=== PATIENT | female | born 1995 | race Two or more races ===

== ENCOUNTER 2019-02-03 15:50 | Inpatient (IN) | payer MEDICAID ==
[~2019-02-03] VITALS: Ht 162.6 cm; Wt 59.0 kg
[2019-02-03] MEDS ORDERED: DEXT 5%/LR + PITOCIN 20UNITS/L 1,000 ML IV SCH (17:53)
[2019-02-03] MEDS ORDERED: CARBOPROST TROMETHAMINE 250 MCG/ML AMPUL IM PRN (18:00)
[2019-02-03] MEDS ORDERED: PENICILLIN G POTASSIUM 5 MMU in DEXT 5% WATER 100 ML IV SCH (18:00)
[2019-02-03] MEDS ORDERED: METHYLERGONOVINE MALEATE 0.2 MG/ML IM PRN (18:00)
[2019-02-03] MEDS ORDERED: LIDOCAINE HCL 1% 20ML VIAL (Pyxis) INJ INFIL SCH (18:00)
[2019-02-03] MEDS ORDERED: NALOXONE HCL 0.4 MG/ML 1ML VIAL IM PRN (18:00)
[2019-02-03] MEDS: LACTATED RINGERS 1,000 ML IV SCH (18:13)
[2019-02-03 18:24] LABS: CLARITY URINE CLEAR (CLEAR); COLOR URINE YELLOW (YELLOW); KETONES URINE NEGATIVE (NEGATIVE); LEUKOCYTE ESTERASE URINE TRACE (NEGATIVE); NITRITE URINE NEGATIVE (NEGATIVE); OCCULT BLOOD URINE NEGATIVE (NEGATIVE); PROTEIN URINE NEGATIVE (NEGATIVE); SPECIFIC GRAVITY URINE 1.023 (1.005-1.030); UROBILINOGEN URINE 0.2 E.U./dL (0.2-1.0)
[2019-02-03 18:24] LABS: BASOPHILS % 0.3 % (0.0-2.0); EOSINOPHILS % 0.7 % (0.0-5.0); HEMATOCRIT. 30.8 % (36.0-48.0); HEMOGLOBIN. 10.2 g/dL (12.0-16.0); LYMPHOCYTES % 17.5 % (20.0-50.0); MEAN CORPUSCULAR VOLUME 81.6 fL (81.0-99.0); MEAN PLATELET VOLUME 11.5 fl (7.4-10.4); MONOCYTES % 8.3 % (2.0-8.0); NEUTROPHILS % 73.2 % (40.0-76.0); PLATELET 243 x1000/uL (130-400); RED BLOOD CELL COUNT 3.77 mill/uL (4.2-5.4); RED CELL DISTRIBUTION WIDTH 15.1 % (11.6-14.6)
[2019-02-03 18:32] LABS: INR 0.9; PARTIAL THROMBOPLASTIN TIME 26.6 sec (23.4-31.0); PROTHROMBIN TIME 9.3 sec (9.6-11.0)
[2019-02-03 18:44] LABS: *AMPHETAMINES SCREEN URINE NEGATIVE (NEGATIVE); *BARBITURATES SCREEN URINE NEGATIVE (NEGATIVE); *BENZODIAZEPINES SCREEN URINE NEGATIVE (NEGATIVE); *COCAINE SCREEN URINE NEGATIVE (NEGATIVE); METHADONE URINE SCREEN NEGATIVE (NEGATIVE)
[2019-02-03 18:45] LABS: CANNABINOID URINE SCREEN NEGATIVE (NEGATIVE); OPIATES URINE SCREEN NEGATIVE (NEGATIVE); PHENCYCLIDINE URINE SCREEN NEGATIVE (NEGATIVE)
[2019-02-03 19:01] LABS: HEPATITIS B SURFACE ANTIGEN NEGATIVE
[2019-02-03] MEDS: PENICILLIN G POTASSIUM 2.5 MMU in DEXTROSE 5% WATER 50 ML IV SCH (22:26)
[2019-02-03] MEDS: BUTORPHANOL TARTRATE 2 MG/ML VIAL IV PRN (23:10)
[2019-02-04] MEDS: LACTATED RINGERS 1,000 ML IV SCH ×2 (00:12→07:00)
[2019-02-04] MEDS: BUTORPHANOL TARTRATE 2 MG/ML VIAL IV PRN (02:09)
[2019-02-04] MEDS: PENICILLIN G POTASSIUM 2.5 MMU in DEXTROSE 5% WATER 50 ML IV SCH ×3 (02:41→10:29)
[2019-02-04] MEDS ORDERED: ROPIVACAINE HCL/PF EPIDURAL 200 ML EPI SCH (05:30)
[2019-02-04] MEDS: SIMETHICONE 80MG TABLET CHEW PO SCH ×2 (08:41→21:00)
[2019-02-04] MEDS: ACETAMINOPHEN 325MG TABLET PO PRN (11:08)
[2019-02-04] MEDS ORDERED: FENTANYL CITRATE/PF 50MCG/ML 2ML VIAL ONE (13:31)
[2019-02-04] MEDS ORDERED: CEFAZOLIN SODIUM 1000MG/VIAL ONE (13:49)
[2019-02-04] MEDS ORDERED: MORPHINE SULFATE/PF 1MG/ML 10ML AMP ONE (13:49)
[2019-02-04] MEDS ORDERED: SODIUM CHLORIDE 0.9% 10ML VIAL ONE (13:55)
[2019-02-04] MEDS ORDERED: OXYTOCIN 10 UNITS/ML 1ML ONE (14:04)
[2019-02-04] MEDS ORDERED: KETOROLAC 60MG/2ML VIAL IM ONE (14:19)
[2019-02-04] MEDS ORDERED: ONDANSETRON HCL 4MG/2ML INJ ONE (14:19)
[2019-02-04 14:39] LABS: BG BASE EXCESS -5.3 mmol/L (-2.0-2.0); BG CARBOXYHEMOGLOBIN 1.2 % (0.5-1.5); BG DEOXYHEMOGLOBIN 40.9 % (0.0-5.0); BG FRACTION INSPIRED OXYGEN 21; BG HCO3 ACT 19.5 mmol/L (22.0-26.0); BG METHEMOGLOBIN 1.1 % (0.0-1.5); BG OXYGEN SATURATION 58.1 % (92.0-98.5); BG OXYHEMOGLOBIN 56.8 % (94.0-97.0); BG PCO2 35.8 mmHg (35.0-45.0); BG PH 7.353 (7.350-7.450); BG PO2 < 30.3 mmHg (75.0-100.0); BG SAMPLE SITE CORD; BG TOTAL HEMOGLOBIN 15.2 g/dL (12.0-18.0); BG VENT MODE ROOM AIR
[2019-02-04] MEDS ORDERED: DEXT 5%/LR + PITOCIN 20UNITS/L 1,000 ML IV SCH (14:46)
[2019-02-04] MEDS ORDERED: TETANUS, DIPHTHERIA, PERTUSSIS VAC/PF 0.5ML (>7YR OLD) IM ONE (15:00)
[2019-02-04] MEDS ORDERED: ONDANSETRON HCL 4MG/2ML INJ IV PRN (15:00)
[2019-02-04] MEDS ORDERED: INFLUENZA VIRUS VACCINE(AFLURIA) 0.5ML SYR IM ONE (15:00)
[2019-02-04] MEDS ORDERED: DIPHENHYDRAMINE 25MG CAPSULE PO PRN (15:00)
[2019-02-04] MEDS ORDERED: HYDROCODONE/ACETAMINOPHEN 5/325MG TABLET PO PRN (15:00)
[2019-02-04] MEDS ORDERED: IBUPROFEN 400MG TABLET PO PRN (15:00)
[2019-02-04] MEDS ORDERED: LANOLIN OINT 7GM TUBE TOP PRN (15:00)
[2019-02-04] MEDS ORDERED: BISACODYL 10MG SUPP PR PRN (15:00)
[2019-02-04] MEDS ORDERED: KETOROLAC 30MG/ML VIAL IV PRN (15:00)
[2019-02-04] MEDS ORDERED: LIDOCAINE HCL 2%/EPINEPHRINE 1:100,000 20 ML VIAL INFIL ONE (16:00)
[2019-02-04] MEDS ORDERED: GENTAMICIN 120MG PREMIX 100 ML IV NR (16:00)
[2019-02-04] MEDS: AMPICILLIN 2,000 MG in SODIUM CHLORIDE 0.9% 100 ML IV SCH ×2 (16:13→23:22)
[2019-02-04] MEDS ORDERED: BUTORPHANOL TARTRATE 2 MG/ML VIAL IV PRN (16:30)
[2019-02-04] MEDS ORDERED: NALOXONE HCL 0.4 MG/ML 1ML VIAL IV PRN (16:30)
[2019-02-04] MEDS ORDERED: DIPHENHYDRAMINE 50MG/ML VIAL IV PRN (16:30)
[2019-02-04 17:01] VITALS: BP 110/60
[2019-02-04 18:00] VITALS: BP 100/52
[2019-02-04 19:20] VITALS: BP 110/69
[2019-02-04] MEDS: KETOROLAC 30MG/ML VIAL IV SCH (21:00)
[2019-02-04] MEDS: MAGNESIUM/ALUMINUM HYDROXIDE/SIMETHICONE 30ML UDC PO SCH (21:00)
[2019-02-04] MEDS: DOCUSATE SODIUM 100MG CAPSULE PO SCH (21:00)
[2019-02-05] VITALS (11 sets, daily range): BP systolic 81–103; BP diastolic 41–65
[2019-02-05] MEDS: ACETAMINOPHEN 325MG TABLET PO PRN ×2 (00:41→15:44)
[2019-02-05] MEDS: AMPICILLIN 2,000 MG in SODIUM CHLORIDE 0.9% 100 ML IV SCH ×3 (05:23→22:40)
[2019-02-05] MEDS: KETOROLAC 30MG/ML VIAL IV SCH (08:40)
[2019-02-05] MEDS: MAGNESIUM/ALUMINUM HYDROXIDE/SIMETHICONE 30ML UDC PO SCH ×5 (08:40→22:02)
[2019-02-05] MEDS: FERROUS SULFATE 325MG TABLET PO SCH ×3 (08:41→18:50)
[2019-02-05] MEDS: GENTAMICIN 120MG PREMIX 100 ML IV SCH ×2 (08:43→21:45)
[2019-02-05] MEDS: PRENATAL VIT/FE FUMARATE/FA TABLET PO SCH (08:43)
[2019-02-05 08:51] LABS: BASOPHILS % 0.2 % (0.0-2.0); EOSINOPHILS % 0.2 % (0.0-5.0); LYMPHOCYTES % 9.8 % (20.0-50.0); MEAN CORPUSCULAR HEMOGLOBIN 26.6 pg (28.0-32.0); MEAN PLATELET VOLUME 11.1 fl (7.4-10.4); MONOCYTES % 8.6 % (2.0-8.0); NEUTROPHILS % 81.2 % (40.0-76.0); PLATELET 177 x1000/uL (130-400); RED CELL DISTRIBUTION WIDTH 15.8 % (11.6-14.6)
[2019-02-05 09:06] LABS: HEMOGLOBIN. 6.6 g/dL (12.0-16.0)
[2019-02-05 09:07] LABS: HEMATOCRIT. 20.2 % (36.0-48.0)
[2019-02-05] MEDS: SIMETHICONE 80MG TABLET CHEW PO SCH ×3 (14:01→21:53)
[2019-02-05] MEDS: DOCUSATE SODIUM 100MG CAPSULE PO SCH (21:53)
[2019-02-05] MEDS: IBUPROFEN 800MG TABLET PO PRN (21:59)
[2019-02-05 23:45] LABS: BASOPHILS % 0.2 % (0.0-2.0); EOSINOPHILS % 0.5 % (0.0-5.0); HEMOGLOBIN. 9.5 g/dL (12.0-16.0); LYMPHOCYTES % 11.9 % (20.0-50.0); MEAN CORPUSCULAR HEMOGLOBIN 27.7 pg (28.0-32.0); MEAN CORPUSCULAR VOLUME 81.8 fL (81.0-99.0); MEAN PLATELET VOLUME 10.6 fl (7.4-10.4); MONOCYTES % 8.5 % (2.0-8.0); NEUTROPHILS % 78.9 % (40.0-76.0); PLATELET 201 x1000/uL (130-400); RED BLOOD CELL COUNT 3.43 mill/uL (4.2-5.4)
[2019-02-06 00:08] VITALS: BP 103/56
[2019-02-06] MEDS: AMPICILLIN 2,000 MG in SODIUM CHLORIDE 0.9% 100 ML IV SCH ×4 (06:17→23:54)
[2019-02-06 07:30] VITALS: BP 104/56
[2019-02-06] MEDS: GENTAMICIN 120MG PREMIX 100 ML IV SCH ×2 (08:33→20:35)
[2019-02-06] MEDS: PRENATAL VIT/FE FUMARATE/FA TABLET PO SCH (08:34)
[2019-02-06] MEDS: FERROUS SULFATE 325MG TABLET PO SCH ×2 (08:34→17:57)
[2019-02-06] MEDS: IBUPROFEN 800MG TABLET PO PRN ×2 (08:34→17:56)
[2019-02-06] MEDS: SIMETHICONE 80MG TABLET CHEW PO SCH ×2 (17:56→21:01)
[2019-02-06 18:08] VITALS: BP 97/55
[2019-02-06] MEDS: MAGNESIUM/ALUMINUM HYDROXIDE/SIMETHICONE 30ML UDC PO SCH (21:00)
[2019-02-06] MEDS: DOCUSATE SODIUM 100MG CAPSULE PO SCH (21:02)
[2019-02-06 22:00] VITALS: BP 105/77
[2019-02-07 01:00] VITALS: BP 101/72
[2019-02-07] MEDS: IBUPROFEN 800MG TABLET PO PRN (05:31)
[2019-02-07 05:40] VITALS: BP 99/66
[2019-02-07] MEDS: AMPICILLIN 2,000 MG in SODIUM CHLORIDE 0.9% 100 ML IV SCH (05:54)
[2019-02-07 07:30] VITALS: BP 105/64
[2019-02-07] MEDS: FERROUS SULFATE 325MG TABLET PO SCH (09:28)
[2019-02-07] MEDS: DOCUSATE SODIUM 100MG CAPSULE PO SCH (09:28)
[2019-02-07 13:30] VITALS: BP 104/62
== END 2019-02-07 14:15 | disposition home or self-care (01) | DRG 540 ==
LOC: 8 EST LDRP 15:50 → OBSVTOIN 15:50 → 8 EST LDRP 16:11 → 8EST 02-04 16:43
PROVIDERS: ADMIT Specialist; ATTEND Specialist
PROC: 10D00Z1 Extraction of Products of Conception, Low, Open Approach (ICD-10-PCS; 2019-02-04)
PROC: 30233N1 Transfusion of Nonautologous Red Blood Cells into Peripheral Vein, Percutaneous Approach (ICD-10-PCS; principal; 2019-02-05)
DX: O48.0 Post-term pregnancy (principal); O41.1230 Chorioamnionitis, third trimester, not applicable or unspecified; D64.9 Anemia, unspecified; O76 Abnormality in fetal heart rate and rhythm complicating labor and delivery; O99.02 Anemia complicating childbirth; O99.824 Streptococcus B carrier state complicating childbirth; Z37.0 Single live birth; O66.5 Attempted application of vacuum extractor and forceps; Z3A.41 41 weeks gestation of pregnancy; Z83.3 Family history of diabetes mellitus; Z87.891 Personal history of nicotine dependence
CPT/HCPCS: 36415; 36600; 80170; 80305; 81003; 82375; 82565; 82805; 86592; 86703; 86762; 86850; 86900; 86920; 87070; 87340; 88307; G0378; J0290; J0595; J0690; J1580; J1885; J2274; J2405; J2540; J2590; J2795; J3010; J3490; J7050; J7060; J7120; P9016; A4315